=== PATIENT | female | born 1970 | race Asian ===

== ENCOUNTER → 2018-10-09 | Outpatient (CLI) | payer OTHER | END | disposition home or self-care (01) | LOC: MA 10:45 | PROC: BH40ZZZ Ultrasonography of Right Breast (ICD-10-PCS; principal; 2018-10-09) | PROC: BH02ZZZ Plain Radiography of Bilateral Breasts (ICD-10-PCS; 2018-10-09) | DX: N63.11 Unspecified lump in the right breast, upper outer quadrant (principal) | CPT/HCPCS: 76641; 77066 ==